=== PATIENT | female | born 1955 | race Two or more races ===

== ENCOUNTER 2022-12-15 19:27 | Emergency (ER) | payer OTHER ==
[~2022-12-15] VITALS: Ht 157.5 cm; Wt 48.0 kg
[2022-12-15] MEDS ORDERED: cloNIDine HCL 0.1 MG TAB PO ONE (20:30)
[2022-12-15] MEDS ORDERED: DexAMETHasone SOD PHOS 10MG/1ML VIAL INJ IM ONE (20:45)
[2022-12-15] MEDS ORDERED: diphenhdrAMINE HCL 50 MG/1 ML VL IM ONE (20:45)
[2022-12-15 21:19] LABS: Basophils # (auto) 0 10 ^3/uL (0-0.2); Basophils % (auto) 0.9 % (0.0-2.0); Eosinophils # (auto) 0.1 10 ^3/uL (0-0.8); Eosinophils % (auto) 1.2 % (0.0-7.0); Monocytes # (auto) 0.3 10 ^3/uL (0-1.3)
[2022-12-15 21:21] LABS: Hematocrit 40.3 % (36.0-46.0); Hemoglobin 13.3 g/dL (12.2-16.2); Lymphocytes # (auto) 1.6 10 ^3/uL (0.4-5.4); Lymphocytes % (auto) 29.6 % (10.0-50.0); Mean Corpuscular Hemoglobin 26.8 pg (28.0-32.0); Mean Corpuscular Volume 81.2 fL (80.0-100.0); Monocytes % (auto) 6.4 % (0.0-12.0); Neutrophils # (auto) 3.3 10 ^3/uL (1.6-8.6); Neutrophils % (auto) 61.9 % (37.0-80.0); Red Blood Cells 4.97 10^6/uL (4.0-5.20); Red Cell Distribution Width 14.1 % (11.8-14.3); White Blood Cell 5.3 10^3/uL (4.4-10.8)
[2022-12-15 21:38] LABS: Albumin 3.9 g/dL (3.4-5.0); BUN/Creatinine Ratio 15.5; Calcium 9.5 mg/dL (8.5-10.1); Potassium 3.2 mmol/L (3.5-5.1)
[2022-12-15 21:41] LABS: Bilirubin, Total 0.2 mg/dL (0.2-1.0); Total Protein 7.4 g/dL (6.4-8.2)
[2022-12-15] MEDS ORDERED: POTASSIUM EFFERVESENT TAB 25 MEQ PO ONE (23:15)
[2022-12-16 02:04] VITALS: BP 171/112
== END 2022-12-16 02:33 | disposition home or self-care (01) ==
LOC: ER 19:27
DX: E87.6 Hypokalemia (principal); L29.8 Other pruritus; L30.9 Dermatitis, unspecified; R73.9 Hyperglycemia, unspecified; I63.9 Cerebral infarction, unspecified; I10 Essential (primary) hypertension
CPT/HCPCS: 36415; 70450; 71045; 80053; 85025; 93005; 96372; 99285; J1100; J1200

== ENCOUNTER 2023-04-06 21:31 | Emergency (ER) | payer OTHER ==
[~2023-04-06] VITALS: Ht 157.5 cm; Wt 47.0 kg
[2023-04-06] MEDS ORDERED: cloNIDine HCL 0.1 MG TAB PO ONE (22:15)
[2023-04-07 00:02] LABS: Basophils # (auto) 0 10 ^3/uL (0-0.2); Basophils % (auto) 0.8 % (0.0-2.0); Eosinophils # (auto) 0.1 10 ^3/uL (0-0.8); Eosinophils % (auto) 1.7 % (0.0-7.0); Hematocrit 37.3 % (36.0-46.0); Hemoglobin 12.1 g/dL (12.2-16.2); Lymphocytes # (auto) 1.6 10 ^3/uL (0.4-5.4); Lymphocytes % (auto) 26.8 % (10.0-50.0); Mean Corpuscular Hemoglobin 26.5 pg (28.0-32.0); Mean Corpuscular Hgb Conc. 32.6 g/dL (32.0-36.0); Mean Corpuscular Volume 81.2 fL (80.0-100.0); Monocytes # (auto) 0.4 10 ^3/uL (0-1.3); Monocytes % (auto) 7.7 % (0.0-12.0); Neutrophils # (auto) 3.6 10 ^3/uL (1.6-8.6); Nucleated Red Blood Cells % 0.1 %; Red Blood Cells 4.59 10^6/uL (4.0-5.20); Red Cell Distribution Width 14.8 % (11.8-14.3); White Blood Cell 5.8 10^3/uL (4.4-10.8)
[2023-04-07 00:17] LABS: INR 0.98 (0.9-1.15); Partial Thromboplastin Time 27.3 SEC (24.5-34.5)
[2023-04-07 00:18] LABS: Albumin 3.6 g/dL (3.4-5.0); BUN/Creatinine Ratio 23.6 (10.0-20.0); Calcium 8.8 mg/dL (8.5-10.1); Potassium 3.3 mmol/L (3.5-5.1)
[2023-04-07 00:21] LABS: Bilirubin, Total 0.2 mg/dL (0.2-1.0); Total Protein 6.5 g/dL (6.4-8.2)
[2023-04-07 02:41] VITALS: BP 173/100
[2023-04-07] MEDS ORDERED: POTASSIUM EFFERVESENT TAB 25 MEQ PO ONE (03:00)
[2023-04-07] MEDS ORDERED: diphenhdrAMINE HCL 50 MG/1 ML VL IM ONE (03:00)
== END 2023-04-07 03:36 | disposition home or self-care (01) ==
LOC: ER 21:31
DX: I10 Essential (primary) hypertension (principal); L29.8 Other pruritus; E87.6 Hypokalemia; L30.9 Dermatitis, unspecified; R06.02 Shortness of breath; Z79.899 Other long term (current) drug therapy; Z79.01 Long term (current) use of anticoagulants
CPT/HCPCS: 36415; 71046; 80053; 83735; 83880; 84443; 84484; 85025; 85610; 85730; 96372; 99284; J1200

== ENCOUNTER 2023-08-02 19:01 | Emergency (ER) | payer OTHER ==
[~2023-08-02] VITALS: Ht 154.9 cm; Wt 42.7 kg
[2023-08-02 19:28] VITALS: PULSE 98; RESP 16
[2023-08-02] MEDS ORDERED: cloNIDine HCL 0.1 MG TAB ONE (19:40)
[2023-08-02] MEDS ORDERED: cloNIDine HCL 0.1 MG TAB PO ONE (19:45)
[2023-08-02 23:03] VITALS: BP 190/102
[2023-08-02] MEDS ORDERED: TRIA0.02 TOP (23:07)
[2023-08-02 23:09] VITALS: O2SAT 96
[2023-08-02] MEDS ORDERED: methylPREDNISolone SOD SUCC 125 MG/2 ML VL IM ONE (23:15)
[2023-08-02] MEDS ORDERED: DexAMETHasone SOD PHOS 10MG/1ML VIAL INJ IM ONE (23:30)
== END 2023-08-03 00:44 | disposition home or self-care (01) ==
LOC: ER 19:01
DX: L40.9 Psoriasis, unspecified (principal); I10 Essential (primary) hypertension; Z79.899 Other long term (current) drug therapy
CPT/HCPCS: 96372; 99283; J1100

== ENCOUNTER 2025-02-07 13:36 | Emergency (ER) | payer OTHER ==
[~2025-02-07] VITALS: Ht 154.9 cm; Wt 45.5 kg
[~2025-02-07 13:36] MED LIST: TRIA0.02 TOP
--- NOTE | 2025-02-07 14:26 | ED.PDOC ---
SOB-HPI HPI Comments 69 y/o F, BIBA, with PMHx of HTN presents to the ED for CC of shortness of breath. EMS reports, patient is coming from home where she complained of shortness of breath while, showering. EMS states, upon their arrival patient stating at 945 on R.A. In route, to the ED patient given x1 breathing Tx; patient stating at 98% R.A. Patient relays, that she recently ran out of her blood pressure medication; patient's blood pressure read at 160/85mmHg. Patient denies chest pain, cough, fever, chills, sore throat, or weakness. No other symptoms or modifying factors present at this time. Chief Complaint: Shortness of Breath Time Seen by MD: 14:45 Primary Care Provider: UNKNOWN Reviewed notes: Nurses Notes, [facility] Director Notes, Medications, Allergies Information Source: Emergency Med Personnel Mode of Arrival: EMS Severity: Moderate Timing: Hours Duration: Since onset Context: With Light Exertion PE Risk Factors: None History of: None Prehospital treatment: None Modifying Factors: Nothing Associated Signs and Symptoms: None Past Medical History PAST MEDICAL HISTORY: HTN Surgical History: Denies all surgeries MANAGER PROPERTY History: Denies all MANAGER PROPERTY Hx Family History Family History: Unknown Social History Smoker: Non-Smoker Alcohol: Denies ETOH Use Drugs: Denies Drug Use Lives In: Home Constitutional: denies: chills, diaphoresis, fatigue, fever, malaise, sweats, weakness, others EENTM: denies: blurred vision, double vision, ear bleeding, ear discharge, ear drainage, ear pain, ear ringing, eye pain, eye redness, hearing loss, mouth pain, mouth swelling, nasal discharge, nose bleeding, nose congestion, nose pain, photophobia, tearing, throat pain, throat swelling, voice changes, others Respiratory: reports: shortness of breath; denies: cough, hemoptysis, orthopnea, SOB at rest, SOB with excertion, stridor, wheezing, others Cardiovascular: denies: chest pain, dizzy spells, diaphoresis, Dyspnea on exertion, edema, irregular heart beat, left arm pain, lightheadedness, palpitations, PND, syncope, others Gastrointestinal: denies: abdomen distended, abdominal pain, blood streaked bowels, constipated, diarrhea, dysphagia, difficulty swallowing, hematemesis, melena, nausea, poor appetite, poor fluid intake, rectal bleeding, rectal pain, vomiting, others Genitourinary: denies: abnormal vagina bleeding, burning, dyspareunia, dysuria, flank pain, frequency, hematuria, incontinence, pain, , vagina discharge, urgency, others Neurological: denies: dizziness, fainting, headache, left sided numbness, left sided weakness, numbness, paresthesia, pre-existing deficit, right sided numbness, right sided weakness, seizure, speech problems, tingling, tremors, weakness, others Musculoskeletal: denies: back pain, gout, joint pain, joint swelling, muscle pain, muscle stiffness, neck pain, others Integumetry: denies: bruises, change in color, change in hair/nails, dryness, laceration, lesions, lumps, rash, wounds, others Allergic/Immunocompromised: denies: Difficulty Healing, Frequent Infections, Hives, Itching, others Hematologic/Lymphatic: denies: anemia, blood clots, easy bleeding, easy bruising, swollen glands, others Endocrine: denies: excessive hunger, excessive sweating, excessive thirst, excessive urination, flushing, intolerance to cold, intolerance to heat, unexplained weight gain, unexplained weight loss, others Psychiatric: denies: anxiety, bipolar disorder, depression, hopeless, panic disorder, schizophrenia, sleepless, suicidal, others All Other Systems: Reviewed and Negative Physical Exam General Appearance: No Apparent Distress, Normal HEENT: Normal ENT Inspection, Pharynx Normal, TMs Normal Neck: Full Range of Motion, Non-Tender, Normal, Normal Inspection Respiratory: Chest Non-Tender, Lungs Clear, No Accessory Muscle Use, No Respiratory Distress, Normal Breath Sounds Cardiovascular: No Edema, No Murmur, No Gallop, Normal Peripheral Pulses, Regular Rate/Rhythm Breast Exam: Deferred Gastrointestinal: No Organomegaly, Non Tender, No Pulsatile Mass, Normal Bowel Sounds, Soft Genitalia: Deferred Pelvic: Deferred Rectal: Deferred Extremities: No calf tenderness, Normal capillary refill, Normal inspection, Normal range of motion, Non-tender, No pedal edema Musculoskeletal : Apperance: Normal Neurologic: Disoriented Cerebellar Function: Normal Reflexes: Normal Skin: Dry, Normal Color, Warm Lymphatic: No Adenopathy Was a procedure done? Was a procedure done?: No Differential Dx Differential Diagnosis: Sinusitis, Pharyngitis, URI X-Ray, Labs, Meds, VS Vital Signs Date Time Temp Pulse Resp B/P (MAP) Pulse Ox O2 Delivery O2 Flow Rate FiO2 02/07/25 15:36 20 94 Room Air* 0 21 02/07/25 14:04 18 98 Room Air* 0 21 02/07/25 13:54 97.6 95 18 160/85 (110) 98 97.6 02/07/25 13:53 95 Lab Test 02/07/25 16:10 02/07/25 15:14 Range/Units Troponin I High Sensitivity 9 9 </=34 ng/L White Blood Count 6.1 4.4-10.8 10^3/uL Red Blood Count 4.83 4.0-5.20 10^6/uL Hemoglobin 12.9 12.2-16.2 g/dL Hematocrit 39.0 36.0-46.0 % Mean Corpuscular Volume 80.8 80.0-100.0 fL Mean Corpuscular Hemoglobin 26.7 L 28.0-32.0 pg Mean Corpuscular Hemoglobin Concent 33.0 32.0-36.0 g/dL Red Cell Distribution Width 14.6 H 11.8-14.3 % Platelet Count 303 140-450 10^3/uL Mean Platelet Volume 7.5 6.9-10.8 fL Neutrophils (%) (Auto) 78.3 37.0-80.0 % Lymphocytes (%) (Auto) 15.2 10.0-50.0 % Monocytes (%) (Auto) 5.5 0.0-12.0 % Eosinophils (%) (Auto) 0.3 0.0-7.0 % Basophils (%) (Auto) 0.7 0.0-2.0 % Neutrophils # (Auto) 4.8 1.6-8.6 10 ^3/uL Lymphocytes # (Auto) 0.9 0.4-5.4 10 ^3/uL Monocytes # (Auto) 0.3 0-1.3 10 ^3/uL Eosinophils # (Auto) 0 0-0.8 10 ^3/uL Basophils # (Auto) 0 0-0.2 10 ^3/uL Nucleated Red Blood Cells 0.0 % Sodium Level 141 136-145 mmol/L Potassium Level 3.4 L 3.5-5.1 mmol/L Chloride Level 104 98-107 mmol/L Carbon Dioxide Level 27 20-31 mmol/L Anion Gap 10 5-15 Blood Urea Nitrogen 15 9-23 mg/dL Creatinine 0.97 0.550-1.02 mg/dL Glomerular Filtration Rate Calc 63 >90 mL/min BUN/Creatinine Ratio 15.5 10.0-20.0 Serum Glucose 138 H 74-106 mg/dL Calcium Level 10.3 8.7-10.4 mg/dL B-Type Natriuretic Peptide 60.94 0-100 pg/mL Current Medications Medications (Trade) Dose Ordered Sig/Brandy Route Start Time Stop Time Status Last Admin Albuterol (Ventolin Medneb) 5 mg ONCE ONCE NEB 02/07/25 15:15 02/07/25 15:20 DC 02/07/25 15:35 Ipratropium Petros (Atrovent Medneb) 0.5 mg ONCE ONCE NEB 02/07/25 15:15 02/07/25 15:20 DC 02/07/25 15:34 [place] [id number] Ph: [phone] DIAGNOSTIC IMAGING Diagnostic Imaging Report : [id number] Signed PATIENT: JANICE ALEXIS ACCT: [id number] UNIT: [id number] : 1955 LOC: ER ROOM / BED: / AGE / SEX: 69 / F ADM STATUS: REG ER SERVICE 0725 ORDERING PHYSICIAN: DESTINEY GIPSON MD PROCEDURE(s): CXRP - CHEST PORTABLE REASON: sob ORDER NUMBER(s): [id number], ACCESSION NUMBER(s): [id number] INDICATION: sob TECHNIQUE: Frontal view of the chest. COMPARISON: XY CHEST XRAY 1 VIEW on DOS: 12/15/22 FINDINGS: . The heart and mediastinal contours are grossly unremarkable. There is no evidence of pleural disease. The lungs are clear. The bony structures of the chest are intact without fracture. IMPRESSION: 1. No evidence of acute disease. ATED BY: VARINDER GONZALES MD DICTATED DATE/TIME: 02/07/25 1535 SIGNED BY: VARINDER GONZALES MD SIGNED DATE/TIME: 02/07/25 1535 CC: Time of 1ST Reevaluation: 15:15 Reevaluation 1ST: Unchanged Patient Education/Counseling: Diagnosis, Treatment Family Education/Counseling: No Family Present Departure 1 Departure Time of Disposition: 17:29 (Patient is breathing comfortably on room air with clear lungs. We will discharge patient home with outpatient follow up) Impression: Primary Impression: Shortness of breath Disposition: HOME / SELF CARE / HOMELESS Condition: Stable Additional Instructions: You likely had a COPD exacerbation. You should use your inhaler as directed. Your prescribed steroids. Please take as directed. It is important to follow up with the regular doctor within 1 week. If your symptoms worsen or you have any other concerns please return to the emergency room. e-Prescriptions Prednisone (Prednisone) 20 Mg Tab 40 MG PO DAILY for 5 Days, #10 MG Prov: DESTINEY GIPSON MD 02/07/25 Discharged With: Self Critical Care Note Critical Care Time?: No Stability Stability form required: No Heart Score Heart Score: Heart Score Response (Comments) Value History N/A 0 EKG N/A 0 Age N/A 0 Risk Factors N/A 0 Troponin N/A 0 Total 0 I personally scribed for DESTINEY GIPSON MD ([email or web address]) on 02/07/25 at 14:26. Electronically submitted by [place] ([employer]). I personally scribed for DESTINEY GIPSON MD ([email or web address]) on 02/07/25 at 14:52. Electronically submitted by [place] ([employer]). I personally scribed for DESTINEY GIPSON MD ([email or web address]) on 02/07/25 at 16:45. Electronically submitted by [place] ([employer]). DESTINEY GIPSON MD February 07, 2025 14:26
[2025-02-07 15:27] LABS: Basophils # (auto) 0 10 ^3/uL (0-0.2); Eosinophils # (auto) 0 10 ^3/uL (0-0.8); Lymphocytes # (auto) 0.9 10 ^3/uL (0.4-5.4); Red Cell Distribution Width 14.6 % (11.8-14.3)
[2025-02-07 15:29] LABS: Basophils % (auto) 0.7 % (0.0-2.0); Eosinophils % (auto) 0.3 % (0.0-7.0); Hemoglobin 12.9 g/dL (12.2-16.2); Lymphocytes % (auto) 15.2 % (10.0-50.0); Mean Corpuscular Hemoglobin 26.7 pg (28.0-32.0); Mean Corpuscular Volume 80.8 fL (80.0-100.0); Monocytes # (auto) 0.3 10 ^3/uL (0-1.3); Monocytes % (auto) 5.5 % (0.0-12.0); Neutrophils # (auto) 4.8 10 ^3/uL (1.6-8.6); Neutrophils % (auto) 78.3 % (37.0-80.0); Platelet Count (auto) 303 10^3/uL (140-450); Red Blood Cells 4.83 10^6/uL (4.0-5.20); White Blood Cell 6.1 10^3/uL (4.4-10.8)
[2025-02-07] MEDS: IPRATROPIUM BROM 0.5 MG/2.5ML INH SOL NEB ONE (15:34)
[2025-02-07] MEDS: ALBUTEROL SULF 2.5 MG/0.5ML(0.5%) NEB SOLN NEB ONE (15:35)
[2025-02-07 15:37] LABS: Chloride 104 mmol/L (98-107); Sodium 141 mmol/L (136-145)
--- NOTE | 2025-02-07 15:37 | DVH ---
INDICATION: sob TECHNIQUE: Frontal view of the chest. COMPARISON: XY CHEST XRAY 1 VIEW on DOS: 12/15/22 FINDINGS: . The heart and mediastinal contours are grossly unremarkable. There is no evidence of pleural disea se. The lungs are clear. The bony structures of the chest are intact without fracture. IMPRESSION: 1. No evidence of acute disease.
[2025-02-07 15:38] LABS: Anion Gap 10 (5-15); Calcium 10.3 mg/dL (8.7-10.4); Carbon Dioxide 27 mmol/L (20-31)
[2025-02-07 15:42] LABS: Potassium 3.4 mmol/L (3.5-5.1)
[2025-02-07 15:43] LABS: BUN/Creatinine Ratio 15.5 (10.0-20.0); Blood Urea Nitrogen 15 mg/dL (9-23); Glucose 138 mg/dL (74-106)
[2025-02-07] MEDS ORDERED: PRED20TA2 PO (17:30)
[2025-02-07] MEDS: KETOROLAC TROMETH 30 MG/ML 1ML VIAL IM ONE (19:46)
[2025-02-07 20:22] VITALS: BP 154/84; TEMP 97.8
[2025-02-07 20:24] VITALS: PULSE 92; RESP 19; O2SAT 98
--- NOTE | 2025-02-08 13:53 | ECG ---
[facility] Test Date: 2025-02-07 Test Time: 13:53:24 Pat Name: JANICE ALEXIS Department: ED Room: Gender: F Medical Communication Specialist: cyn : 1955 Requested By: DESTINEY GIPSON Order Number: [id number] Reading MD: Andrew Quinn Measurements Intervals [place] Rate: 95 P: 79 VA: 138 QRS: 47 QRSD: 80 T: 70 QT: 398 QTc: 501 Interpretive Statements Sinus rhythm Right atrial enlargement Anterior infarct, old Prolonged QT interval Electronically Signed On 02-09-2025 21:17:18 PDT by Andrew Quinn Please click the below link to view image of tracing.
== END 2025-02-07 20:50 | disposition home or self-care (01) ==
LOC: EDBD 13:36 → ER 13:36
DX: R06.02 Shortness of breath (principal); I10 Essential (primary) hypertension
CPT/HCPCS: 36415; 71045; 80048; 83880; 84484; 85025; 93005; 94640; 96372; 99285; J1885